=== PATIENT | female | born 1945 | race Caucasian/White ===

== ENCOUNTER 2017-10-05 11:52 | Emergency (ER) | payer OTHER, MEDICARE ==
--- NOTE | 2017-10-05 12:16 | EDPHY ---
General - History Smoking Status: Never smoked Time Seen by Provider: 10/05/17 12:03 Narrative: CHIEF COMPLAINT: Lightheaded, near loss of consciousness HISTORY OF PRESENT ILLNESS: Patient presents with complaint of feeling lightheaded and if she was going to pass out. She was at the bank this morning around 10:30 a.m.. She had already walked into the baking was standing there for a couple minutes. She says she felt an onset of lightheadedness and felt as though she was going to pass out but she sat down and symptoms did improve relatively quickly. She had no chest pain. She had no spinning sensation. No nausea or vomiting. She still feels somewhat lightheaded at rest but it is much improved from previous. No previous incidence of this. No history of syncope, congestive heart failure, cardiomyopathy. She denies any ongoing medical diagnoses are medications. She did not fall or strike her head during this. No other associated complaints or modifying factors. REVIEW OF SYSTEMS: Ten systems reviewed and are negative unless otherwise noted in the HPI PCP: Dr. Arias SPECIALISTS: None PAST MEDICAL HISTORY: Denies any medical history PAST SURGICAL HISTORY: No recent surgeries SOCIAL HISTORY: Nonsmoker. No drug or alcohol use. Lives independently with her spouse FAMILY HISTORY: Noncontributory EXAMINATION General Appearance: Alert, no distress Head: normocephalic, atraumatic Eyes: Pupils equal and round, no conjunctival pallor or injection. EOMs symmetric. No nystagmus. ENT, Mouth: Mucous membranes moist Neck: Normal inspection, supple, non-tender Respiratory: Lungs are clear to auscultation. No wheeze, rhonchi or crackles Cardiovascular: Regular rate and rhythm. No murmur. No JVD. Good signs of perfusion distally Gastrointestinal: Abdomen is soft and nontender Back: non-tender, no bony abnormalities Neurological: GCS 15. Cranial nerves 2-12 grossly intact. A&O, nonfocal, normal gait Skin: Warm and dry, no rash. No petechiae or purpura Extremities: Nontender, no pedal edema Psychiatric: Mood and affect normal DIFFERENTIAL DIAGNOSES: Including but not limited to CP, near-syncope, symptomatic bradycardia, hypotension, anemia, orthostasis, vasovagal MDM: 12:15 p.m. Patient describes lightheadedness with near syncopal episode with no syncope, no chest pain or shortness of breath. She does have a mildly bradycardic heart rate 54 beats per minute. Her pressure on arrival is 128/55. She says she was feeling better at this time of my examination. She is currently being placed on a business architect with an EKG being obtained. Proceed with orthostatic vital signs and IV placement as well. She is awake and alert conversing appropriately. Laboratory studies are pending. 12:30 p.m. Notified by SUSAN Bansal. Orthostatics were borderline positive. Patient was very symptomatic when standing from seated position. 1:30 p.m. Patient remains on the business architect was sinus bradycardia. IV fluid infusing. Labs pending. 2:00 p.m. Chemistry and troponin are negative. CBC is pending. I have discussed with Dr. Hinson, and he recommends ECHO. This has been ordered. 2:35 p.m. Echocardiogram currently being performed. 3:[address] Mckeon has discussed the echocardiogram with Dr. Hinson. This is a normal echocardiogram. We discussed the patient's case and Dr. Mckeon will see the patient in his office for a Holter monitor placement. Dr. Hinson has also evaluated the patient in person. He feels she is stable for discharge home as do I. The patient is comfortable this plan. She has ambulated successfully emergency depart without difficulty. We discussed avoiding any dangerous activities. We discussed ED precautions for worsening symptoms, syncope, chest pain. EKG interpretation: Dr. Gordon and Dr. Hinson SUPERVISION: Patient was independently examined, but I discussed the case with my secondary supervising physician Dr. Gordon ([facility]) Medical Decision Making: Independent physician evaluation: I evaluated and participated in the management of the patient. I also evaluated the patient independently. My co-signature indicates that I have reviewed this chart and I agree with the findings and plan of care as documented. My personal H&P findings include: The patient presents to the ED with several weeks to perhaps a month of intermittent presyncope. Patient denies any chest pain or shortness of breath. She had been on medications for hypertension up until 1 month ago when she ran out of the medication. She has not experienced true syncope. Her symptoms can occur at rest and also with positional changes. Physical exam General Appearance: Alert, no distress Eyes: Pupils equal and round no pallor or injection ENT, Mouth: Mucous membranes moist Respiratory: There are no retractions, lungs are clear to auscultation Cardiovascular: Regular rate and rhythm Gastrointestinal: Abdomen is soft and nontender, no masses, bowel sounds normal Neurological: A&O, normal motor function, normal sensory exam, normal cranial nerves Skin: Warm and dry, no rashes Musculoskeletal: Neck is supple nontender Extremities: symmetrical, full range of motion Psychiatric: Patient is oriented X 3, there is no agitation ED course: The patient's EKG demonstrates sinus bradycardia without evidence of or malignant arrhythmia. The patient did undergo an unremarkable echocardiogram. The patient had no hypotension or vasovagal symptoms in the ED. Case was discussed with Dr. Mckeon from Cardiology who will see the patient in the office for Holter monitoring. (Sam Hinson) - Diagnostics Imaging Results: Imaging Impressions Chest X-Ray 10/05/17 12:06 Impression: 1. Minimal scarring in the left lower lobe. 2. No definite pneumonia. 3. Consider chest two views when the patient's medical condition permits. - Objective Vital Signs: Initial Vital Signs Temperature (C) 36.7 C 10/05/17 11:54 Heart Rate 54 L 10/05/17 11:54 Respiratory Rate 16 10/05/17 11:54 Blood Pressure 128/55 H 10/05/17 11:54 O2 Sat (%) 93 10/05/17 11:54 O2 Delivery Mode Room Air Allergies/Adverse Reactions: No Known Allergies Allergy (Unverified 10/05/17 11:56) Home Medications: Medication Instructions Recorded NK [No Known Home Meds] 10/05/17 Laboratory Results: Laboratory Results 10/05/17 13:07 10/05/17 13:07 10/05/17 10/05/17 10/05/17 13:07 13:07 13:07 WBC 5.26 10^3/uL 10^3/uL (3.80-9.50) RBC 4.41 10^6/uL 10^6/uL (4.18-5.33) Hgb 13.7 g/dL g/dL (12.6-16.3) Hct 40.9 % % (38.0-47.0) MCV 92.7 fL fL (81.5-99.8) MCH 31.1 pg pg (27.9-34.1) MCHC 33.5 g/dL g/dL (32.4-36.7) RDW 13.7 % % (11.5-15.2) Plt Count 200 10^3/uL 10^3/uL (150-400) MPV 8.9 fL fL (8.7-11.7) Neut % (Auto) 76.2 % H % (39.3-74.2) Lymph % (Auto) 15.4 % % (15.0-45.0) [place] % (Auto) 7.2 % % (4.5-13.0) Eos % (Auto) 0.4 % L % (0.6-7.6) Baso % (Auto) 0.6 % % (0.3-1.7) Nucleat RBC Rel Count 0.0 % % (0.0-0.2) Absolute Neuts (auto) 4.01 10^3/uL 10^3/uL (1.70-6.50) Absolute Lymphs (auto) 0.81 10^3/uL L 10^3/uL (1.00-3.00) Absolute Monos (auto) 0.38 10^3/uL 10^3/uL (0.30-0.80) Absolute Eos (auto) 0.02 10^3/uL L 10^3/uL (0.03-0.40) Absolute Basos (auto) 0.03 10^3/uL 10^3/uL (0.02-0.10) Absolute Nucleated RBC 0.00 10^3/uL 10^3/uL (0-0.01) Immature Gran % 0.2 % % (0.0-1.1) Seg Neutrophils % 68 % % Band Neutrophils % 7 % % Lymphocytes % 15 % % Monocytes % 10 % % Immature Gran # 0.01 10^3/uL 10^3/uL (0.00-0.10) Absolute Seg Neuts 3.58 10^/uL 10^/uL (1.70-6.50) Absolute Band Neuts 0.37 10^3/uL 10^3/uL (0.00-0.70) Absolute Lymphocytes 0.79 10^3/uL L 10^3/uL (1.00-3.00) Absolute Monocytes 0.53 10^3/uL 10^3/uL (0.30-0.80) RBC/WBC/PLT Morphology NORMAL (NORMAL) Atypical Lymphocytes 1+ H Platelet Estimate ADEQUATE (ADEQ) PT 14.1 SEC SEC (12.0-15.0) INR 1.07 (0.83-1.16) APTT 27.8 SEC SEC (23.0-38.0) Sodium 138 mEq/L mEq/L (135-145) Potassium 4.0 mEq/L mEq/L (3.5-5.2) Chloride 105 mEq/L mEq/L (97-110) Carbon Dioxide 24 mEq/l mEq/l (22-31) Anion Gap 9 mEq/L mEq/L (8-16) BUN 16 mg/dL mg/dL (7-23) Creatinine 0.8 mg/dL mg/dL (0.6-1.0) Estimated GFR > 60 Glucose 93 mg/dL mg/dL (70-100) Calcium 8.0 mg/dL L mg/dL (8.5-10.4) Troponin I < 0.012 ng/mL ng/mL (0.000-0.034) NT-Pro-B Natriuret Pep 262 pg/mL H pg/mL (0-125) TSH 2.360 uIU/mL uIU/mL (0.465-4.680) Medications Given: Discontinued Medications Sodium Chloride (Ns) 1,000 mls @ 0 mls/hr IV ONCE ONE PRN Reason: Wide Open Stop: 10/05/17 13:41 Last Admin: 10/05/17 12:45 Dose: 1,000 mls Departure - Departure Disposition: Home, Routine, Self-Care Clinical Impression: Near syncope, Orthostatic dizziness Instructions: Near Syncope (ED) Additional Instructions: 1. Contact sap hana developer for outpatient follow-up and Holter monitor as discussed. 2. ED precautions for worsening symptoms, loss of conscious or chest pain Referrals: [facility] [Provider Group] - As per Instructions Erick Mckeon MD [Medical Doctor] - As per Instructions
--- NOTE | 2017-10-05 12:22 | CPEKG ---
Heart Rate: 51 RR Interval: 1176 P-R Interval: 164 QRSD Interval: 88 QT Interval: 492 QTC Interval: 454 P Austin: 49 QRS Austin: 10 T Wave Austin: 80 EKG Severity - ABNORMAL ECG - EKG Impression: SINUS RHYTHM EKG Impression: NONSPECIFIC T ABNORMALITIES, ANT-LAT LEADS Electronically Signed By: Cm Gordon 05-Oct-2017 14:17:08
[2017-10-05 13:17] LABS: PLATELET COUNT 200 10^3/uL (150-400)
[2017-10-05 13:28] LABS: INR 1.07 (0.83-1.16); PROTIME(PATIENT) 14.1 SEC (12.0-15.0)
[2017-10-05] MEDS ORDERED: NS 1,000 ML IV ONE (13:40)
--- NOTE | 2017-10-05 15:27 | ECHO ---
[email or web address] [address] [address] Main: [phone] Fax: Transthoracic Echocardiogram Name: DANIAL HAGAN MR#: [id number] Study Date: 10/05/2017 Study Time: 02:59 PM Date of : 1945 Age: 71 year(s) Height: 162.6 cm (64 in.) Weight: 74.84 kg (165 lb.) BSA: 1.8 m2 Gender: Female Examination: Echo Indication: Cardiac: syncope, Eval LV Fx Image Quality: Contrast: Requested by: Bright Garrett BP: / Heart Rate: Rhythm: Sinus bradycardia Indication: Cardiac: syncope, Eval LV Fx Procedure Staff Rotary Envelope Machine Operator: Seamus Polo RDCS Reading Physician: Erick Mckeon MD Requesting Provider: Conclusions: Normal size left ventricle. No LV hypertrophy. Normal global systolic LV function. The ejection fraction is visually estimated to be 60 %. Normal RV function. The left atrium is normal in size. The right atrium is normal in size. No pericardial effusion. Measurements: Chambers Valvular Assessment AV/MV Valvular Assessment TV/PV Normal Normal Normal Name Value Range Name Value Range Name Value Range IVSd (2D): 1.0 cm (0.6 cm-1.1 AV Vmax: 1.47 m/s (1 m/s-1.7 TR Vmax: 2.55 mm/s ( - ) cm) m/s) TR PGmax: 26 mmHg ( - ) LVDd (2D): 3.3 cm (3.9 cm-5.3 AV maxP mmHg ( - ) syst. PAP: 31 mmHg ( - ) cm) LVOT Vmax: 1.09 m/s (0.7 m/s-1.1 PV Vmax: 1.13 m/s (0.6 m/s-0.9 LVDs (2D): 2.1 cm (2.1 cm-4 m/s) m/s) cm) MV E Vmax: 0.80 m/s ( - ) PV PGmax: 5 mmHg ( - ) LVPWd (2D): 1.0 cm ( - ) MV A Vmax: 0.70 m/s ( - ) Visual EF: 60 % MV E/A: 1.14 ( - ) Continued Measurements: Chambers Valvular Assessment AV/MV Valvular Assessment TV/PV Name Value Name Value Name Value LADs Lon.7 cm MV E/E' Septal: 12.10 CVP (est.): 5 mmHg LA Area: 14.7 cm2 MV E/E' Lateral: 12.80 LA Volume: 39 ml Patient: DANIAL HAGAN Study Date: 10/05/2017 Page 1 of 2 02:59 PM LA Volume Index: 21.7 ml/m2 Findings: Left Ventricle: Normal size left ventricle. No LV hypertrophy. Normal global systolic LV function. The ejection fraction is visually estimated to be 60 %. No regional wall motion abnormality. Diastolic dysfunction is present. . Right Ventricle: Normal size right ventricle. Normal RV function. Left Atrium: The left atrium is normal in size. Right Atrium: The right atrium is normal in size. Mitral Valve: Mild mitral valve leaflet calcification is present. Mild mitral annular calcification. There is no mitral valve regurgitation. Aortic Valve: The aortic valve is normal in appearance and function. The aortic valve is tri-leaflet. Tricuspid Valve: The tricuspid valve is normal in appearance and function. Trivial tricuspid valve regurgitation. Pulmonic Valve: The pulmonic valve is normal in appearance and function. Aorta: The aorta is normal. IVC: The IVC is normal sized. Pericardium: No pericardial effusion. Exam Comments: Ectopy was noted during the exam.. (No Signature Object) Patient: DANIAL HAGAN Study Date: 10/05/2017 Page 2 of 2 02:59 PM [id number]
[2017-10-05 15:51] VITALS: BP 134/73; PULSE 54; RESP 18; TEMP 98.2; O2SAT 94
== END 2017-10-05 15:51 | disposition home or self-care (01) ==
LOC: MERGE 11:52
DX: R55 Syncope and collapse (principal); R42 Dizziness and giddiness

== ENCOUNTER → 2018-01-31 | Outpatient (CLI) | payer OTHER, MEDICARE | LOC: FIMAGING 15:27 | PROVIDERS: ATTEND Family Medicine | DX: Z12.31 Encounter for screening mammogram for malignant neoplasm of breast (principal); Z85.3 Personal history of malignant neoplasm of breast ==

== ENCOUNTER → 2018-02-10 | Outpatient (CLI) | payer OTHER, MEDICARE | LOC: FIMAGING 13:34 | PROVIDERS: ATTEND Family Medicine | DX: Z13.820 Encounter for screening for osteoporosis (principal); M81.0 Age-related osteoporosis without current pathological fracture; Z78.0 Asymptomatic menopausal state; Z85.3 Personal history of malignant neoplasm of breast ==

== ENCOUNTER 2018-11-06 11:30 | Emergency (ER) | payer OTHER, MEDICARE ==
--- NOTE | 2018-11-06 12:55 | EDPHY ---
H & P Stated Complaint: htn at drs office for regular check up Time Seen by Provider: 11/06/18 12:54 HPI/ROS: CHIEF COMPLAINT: Asymptomatic hypertension HISTORY OF PRESENT ILLNESS: The patient is referred to the emergency department from her neurologist's office for asymptomatic hypertension. The patient was noted to have a blood pressure of 200/90. The patient has no history of hypertension. She takes no medication for hypertension. She reports that she has always had will control blood pressure when evaluated by her primary care provider. The patient denies any associated headache, chest pain or shortness of breath. She denies any focal numbness or weakness. She denies any decreased urination. REVIEW OF SYSTEMS: A comprehensive 10 point review of systems is otherwise negative aside from elements mentioned in the history of present illness. Source: Patient Exam Limitations: No limitations - Personal History Current Tetanus Diphtheria and Acellular Pertussis (TDAP): Yes - Medical/Surgical History Hx Asthma: No Hx Chronic Respiratory Disease: No Hx Diabetes: No Hx Cardiac Disease: No Hx Renal Disease: No Hx Cirrhosis: No Hx Alcoholism: No Hx HIV/AIDS: No Hx Splenectomy or Spleen Trauma: No Other PMH: Over active bladder. parkinsons - Social History Smoking Status: Never smoked - Physical Exam Exam: General Appearance: Alert, no distress Eyes: Pupils equal and round no pallor or injection ENT, Mouth: Mucous membranes moist Respiratory: There are no retractions, lungs are clear to auscultation Cardiovascular: Regular rate and rhythm Gastrointestinal: Abdomen is soft and nontender, no masses, bowel sounds normal Neurological: A&O, normal motor function, normal sensory exam, normal cranial nerves Skin: Warm and dry, no rashes Musculoskeletal: Neck is supple nontender Extremities: symmetrical, full range of motion Psychiatric: Patient is oriented X 3, there is no agitation Constitutional: Initial Vital Signs Temperature (C) 36.4 C 11/06/18 11:36 Heart Rate 52 L 11/06/18 11:36 Respiratory Rate 17 11/06/18 11:36 Blood Pressure 215/80 H 11/06/18 11:36 O2 Sat (%) 97 11/06/18 11:36 O2 Delivery Mode Room Air Allergies/Adverse Reactions: No Known Allergies Allergy (Unverified 10/05/17 11:56) Home Medications: Medication Instructions Recorded Aspirin 81mg (*) 11/06/18 Atorvastatin Calcium 11/06/18 Exelon 11/06/18 Vitamins And Supplements 11/06/18 amLODIPine BESYLATE [Norvasc 5 mg 5 mg PO DAILY #30 tab 11/06/18 (*)] Medical Decision Making - Diagnostics EKG Interpretation: EKG: Complete interpretation has been separately recorded in the [facility] archive. Summary impression: Sinus rhythm, rate 52 Imaging Results: Imaging Impressions Chest X-Ray 11/06/18 12:37 Impression: 1. Stable borderline cardiomegaly. 2. No active cardiopulmonary disease seen. ED Course/Re-evaluation: The patient presents to the ED with acute hypertension without evidence of end- organ dysfunction clinically. The patient was treated with 5 mg of oral Norvasc. Blood pressure recheck at 2:40 p.m. Demonstrates a systolic blood pressure of 180/75. I spoke with the patient's primary care provider Dr. Dunham. She will be started on Norvasc 5 mg daily. She will follow up in the office for a blood pressure recheck this week. Patient has been advised to return to the ED for any chest pain, shortness of breath markedly worsening symptoms. Differential Diagnosis: Differential diagnosis considered includes hypertensive urgency, hypertensive emergency, renal failure, acute coronary syndrome, stroke - Data Points Laboratory Results: Laboratory Results 11/06/18 12:15 11/06/18 12:15 11/06/18 11/06/18 11/06/18 13:10 12:15 12:15 WBC 10.36 10^3/uL H 10^3/uL (3.80-9.50) RBC 4.69 10^6/uL 10^6/uL (4.18-5.33) Hgb 14.1 g/dL g/dL (12.6-16.3) Hct 43.7 % % (38.0-47.0) MCV 93.2 fL fL (81.5-99.8) MCH 30.1 pg pg (27.9-34.1) MCHC 32.3 g/dL L g/dL (32.4-36.7) RDW 13.3 % % (11.5-15.2) Plt Count 275 10^3/uL 10^3/uL (150-400) MPV 10.3 fL fL (8.7-11.7) Neut % (Auto) 80.7 % H % (39.3-74.2) Lymph % (Auto) 14.3 % L % (15.0-45.0) [place] % (Auto) 3.5 % L % (4.5-13.0) Eos % (Auto) 0.8 % % (0.6-7.6) Baso % (Auto) 0.5 % % (0.3-1.7) Nucleat RBC Rel Count 0.0 % % (0.0-0.2) Absolute Neuts (auto) 8.37 10^3/uL H 10^3/uL (1.70-6.50) Absolute Lymphs (auto) 1.48 10^3/uL 10^3/uL (1.00-3.00) Absolute Monos (auto) 0.36 10^3/uL 10^3/uL (0.30-0.80) Absolute Eos (auto) 0.08 10^3/uL 10^3/uL (0.03-0.40) Absolute Basos (auto) 0.05 10^3/uL 10^3/uL (0.02-0.10) Absolute Nucleated RBC 0.00 10^3/uL 10^3/uL (0-0.01) Immature Gran % 0.2 % % (0.0-1.1) Immature Gran # 0.02 10^3/uL 10^3/uL (0.00-0.10) Sodium 139 mEq/L mEq/L (135-145) Potassium 3.8 mEq/L mEq/L (3.5-5.2) Chloride 102 mEq/L mEq/L (97-110) Carbon Dioxide 29 mEq/l mEq/l (22-31) Anion Gap 8 mEq/L mEq/L (6-14) BUN 11 mg/dL mg/dL (7-23) Creatinine 0.7 mg/dL mg/dL (0.6-1.0) Estimated GFR > 60 Glucose 92 mg/dL mg/dL (70-100) Calcium 9.3 mg/dL mg/dL (8.5-10.4) POC Troponin I 0.00 ng/mL ng/mL (0.00-0.08) Medications Given: Discontinued Medications Amlodipine Besylate (Norvasc) 5 mg PO EDNOW ONE Stop: 11/06/18 13:19 Last Admin: 11/06/18 13:26 Dose: 5 mg Point of Care Test Results: Chemistry 11/06/18 13:10 POC Troponin I 0.00 ng/mL ng/mL (0.00-0.08) Departure - Departure Disposition: Home, Routine, Self-Care Clinical Impression: Hypertension Qualifiers: Hypertension type: essential hypertension Qualified Code(s): I10 - Essential ( primary) hypertension Condition: Good Instructions: Hypertension (ED) Additional Instructions: 1. Begin Norvasc as directed. 2. Please follow-up with Dr. Dunham for a blood pressure check this week. 3. Return to the ED for any headache, chest pain, numbness, weakness or other concerns. Referrals: Win Dunham MD [Primary Care Provider] - As per Instructions
[2018-11-06 12:57] LABS: PLATELET COUNT 275 10^3/uL (150-400)
[2018-11-06] MEDS ORDERED: amLODIPine BESYLATE 5 MG TAB PO ONE (13:18)
--- NOTE | 2018-11-06 14:10 | CPEKG ---
Test Reason : OPEN Blood Pressure : / mmHG Vent. Rate : 052 BPM Atrial Rate : 053 BPM P-R Int : 155 ms QRS Dur : 095 ms QT Int : 548 ms P-R-T Axes : 049 065 075 degrees QTc Int : 510 ms Sinus rhythm Prolonged QT interval Confirmed by Sam Hinson ([id number]) on 11/06/2018 2:09:47 PM Referred By: PHYSICIAN ED Confirmed By:Sam Hinson
[2018-11-06 14:57] VITALS: BP 194/92
== END 2018-11-06 14:56 | disposition home or self-care (01) ==
DX: I10 Essential (primary) hypertension (principal); G20 Parkinson's disease
CPT/HCPCS: 84484-ER